=== PATIENT | male | born 1980 | race Caucasian/White ===

== ENCOUNTER 2017-08-26 14:25 | Emergency (ER) | payer OTHER ==
[2017-08-26] MEDS ORDERED: Sodium Chloride 0.9% 2.5 ML Syringe FLUSH PRN (14:27)
[2017-08-26] MEDS ORDERED: Sodium Chloride 0.9% 10 ML Syringe FLUSH PRN (14:27)
--- NOTE | 2017-08-26 14:47 | EDM.PDOC ---
ED HPI GENERAL MEDICAL PROBLEM - General Chief Complaint: Trauma Stated Complaint: AMB Time Seen by Provider: 08/26/17 14:26 Source of Information: Reports: Patient, EMS History Limitations: Reports: No Limitations - History of Present Illness INITIAL COMMENTS - FREE TEXT/NARRATIVE: History of present illness: []Patient was at work and was crushed between a fixed metal plate in a heavy hydraulic cylinder while standing up. He lost consciousness and the next thing he remembered was laying on the floor, jumping up and yelling at everyone to get away from him. Patient complained of right shoulder pain and right upper chest and back pain. Brought in by ambulance with stable vital signs denying any shortness of breath, abdominal pain or any other pain except noted above. Patient did experience urinary incontinence Review of systems: As per history of present illness and below otherwise all systems reviewed and negative. Past medical history: As per history of present illness and as reviewed below otherwise noncontributory. Surgical history: As per history of present illness and as reviewed below otherwise noncontributory. Social history: No reported history of drug or alcohol abuse. Family history: As per history of present illness and as reviewed below otherwise noncontributory. Physical exam: General: Well developed, well nourished in NAD HEENT: Atraumatic, normocephalic, pupils reactive, negative for conjunctival pallor or scleral icterus, mucous membranes moist, throat clear, neck supple, nontender, trachea midline. Lungs: Clear to auscultation, breath sounds equal bilaterally, chest nontender. Heart: S1S2, regular, negative for clicks, rubs, or JVD. Abdomen: Soft, nondistended, nontender. Negative for masses or hepatosplenomegaly. Negative for costovertebral tenderness. Pelvis: Stable nontender. Genitourinary: Deferred. Rectal: Deferred. Extremities: Atraumatic, negative for cords or calf pain. Neurovascular unremarkable. Neuro: Awake, alert, oriented. Cranial nerves II through XII unremarkable. Cerebellum unremarkable. Motor and sensory unremarkable throughout. Exam nonfocal. Diagnostics: []CT head neck and chest all negative, right shoulder x-rays negative for fracture or dislocation. Therapeutics: []patient declined any pain meds Impression: []Crush injury to chest, shoulder contusion Plan: []Tramadol Motrin for pain ice to areas of tenderness return if symptoms worsen or change. Definitive disposition and diagnosis as appropriate pending reevaluation and review of above. Right Shoulder Pain Score (Numeric/FACES): 3 - Related Data Allergies Allergy/AdvReac Type Severity Reaction Status Date / Time No Known Allergies Allergy Verified 08/26/17 16:00 Home Meds: Home Meds traMADol HCl [Tramadol HCl] 50 mg PO Q6H PRN #16 tablet 08/26/17 [Rx] Review of Systems - Review of Systems Review Of Systems: See Below (See history of present illness) ED EXAM, GENERAL - Physical Exam Exam: See Below (See history of present illness) Course - Vital Signs Last Recorded V/S: Last Vital Signs Temp 97.9 F 08/26/17 14:25 Pulse 104 H 08/26/17 14:25 Resp 18 08/26/17 14:25 BP 138/95 H 08/26/17 14:25 Pulse Ox 95 08/26/17 14:25 - Orders/Labs/Meds Orders: Active Orders 24 hr Category Date Time Status Admission Status [Patient Status] [ADT] Stat ADT 08/26/17 14:56 Active DRUG SCREEN, URINE [URCHEM] Stat Lab 08/26/17 14:28 Uncollected UA W/MICROSCOPIC [URIN] Stat Lab 08/26/17 14:27 Uncollected Sodium Chloride 0.9% [Saline Flush] Med 08/26/17 14:27 Active 10 ml FLUSH ASDIRECTED PRN Sodium Chloride 0.9% [Saline Flush] Med 08/26/17 14:27 Active 2.5 ml FLUSH ASDIRECTED PRN Saline Lock Insert [OM.PC] Stat Oth 08/26/17 14:27 Ordered Medication Orders Sodium Chloride (Saline Flush) 10 ml FLUSH ASDIRECTED PRN PRN Reason: Keep Vein Open Last Admin: 08/26/17 15:32 Dose: 10 ml Sodium Chloride (Saline Flush) 2.5 ml FLUSH ASDIRECTED PRN PRN Reason: Keep Vein Open Last Admin: 08/26/17 15:32 Dose: 2.5 ml Labs: Laboratory Tests 08/26/17 08/26/17 Range/Units 14:25 14:25 WBC 11.59 H (4.0-11.0) K/uL RBC 5.74 (4.50-5.90) M/uL Hgb 17.2 H (13.0-17.0) g/dL Hct 48.6 (38.0-50.0) % MCV 84.7 (80.0-98.0) fL MCH 30.0 (27.0-32.0) pg MCHC 35.4 (31.0-37.0) g/dL RDW Std Deviation 37.8 (28.0-62.0) fl RDW Coeff of Makayla 13 (11.0-15.0) % Plt Count 255 (150-400) K/uL MPV 9.80 (7.40-12.00) fL Add Manual Diff YES Neutrophils % (Manual) 61 (48.0-80.0) % Band Neutrophils % 1 % Lymphocytes % (Manual) 30 (16.0-40.0) % Monocytes % (Manual) 8 (0.0-15.0) % Absolute Seg Neuts 7.1 H (1.4-5.7) Band Neutrophils # 0.1 Lymphocytes # (Manual) 3.5 H (0.6-2.4) Monocytes # (Manual) 0.9 H (0.0-0.8) Sodium 140 (136-146) mmol/L Potassium 4.1 (3.5-5.1) mmol/L Chloride 105 (98-110) mmol/L Carbon Dioxide 24 (21-31) mmol/L BUN 7 (6.0-23.0) mg/dL Creatinine 0.8 (0.6-1.5) mg/dL Est Cr Clr Drug Dosing TNP Estimated GFR (MDRD) > 60.0 ml/min Glucose 96 (60-110) mg/dL Calcium 9.3 (8.8-10.8) mg/dL Total Bilirubin 0.5 (0.1-1.5) mg/dL AST 36 (5-40) IU/L ALT 46 (8-54) IU/L Alkaline Phosphatase 48 (40-150) Total Protein 7.5 (6.0-8.0) g/dL Albumin 4.5 (3.5-5.0) g/dL Globulin 3.0 (2.0-3.5) g/dL Albumin/Globulin Ratio 1.5 (1.3-2.8) Lipase 22 (7-80) U/L Ethyl Alcohol < 10.0 mg/dL Meds: Medications Generic Name Dose Route Start Last Admin Trade Name Freq PRN Reason Stop Dose Admin Sodium Chloride 10 ml 08/26/17 14:27 08/26/17 15:32 Saline Flush FLUSH 10 ml ASDIRECTED PRN Administration Keep Vein Open Sodium Chloride 2.5 ml 08/26/17 14:27 08/26/17 15:32 Saline Flush FLUSH 2.5 ml ASDIRECTED PRN Administration Keep Vein Open Discontinued Medications Generic Name Dose Route Start Last Admin Trade Name Freq PRN Reason Stop Dose Admin Iopamidol 75 ml 08/26/17 15:07 08/26/17 15:09 Isovue Multipack-370 (76%) IVPUSH 08/26/17 15:08 75 ml ONETIME STA Administration Departure - Departure Time of Disposition: 16:35 Disposition: Home, Self-Care 01 Condition: Good Clinical Impression: Chest wall contusion Qualifiers: Encounter type: initial encounter Laterality: right Qualified Code(s): S20.211A - Contusion of right front wall of thorax, initial encounter Shoulder contusion Qualifiers: Encounter type: initial encounter Laterality: right Qualified Code(s): S40.011A - Contusion of right shoulder, initial encounter - Discharge Information Prescriptions: traMADol HCl [Tramadol HCl] 50 mg PO Q6H PRN #16 tablet PRN Reason: Pain Referrals: Zenia Caldera MD [Physician] - (As needed) Forms: ED Department Discharge Additional Instructions: The following information is given to patients seen in the emergency department who are being discharged to home. This information is to outline your options for follow-up care. We provide all patients seen in our emergency department with a follow-up referral. The need for follow-up, as well as the timing and circumstances, are variable depending upon the specifics of your emergency department visit. If you don't have a primary care physician on staff, we will provide you with a referral. We always advise you to contact your personal physician following an emergency department visit to inform them of the circumstance of the visit and for follow-up with them and/or the need for any referrals to a consulting specialist. The emergency department will also refer you to a specialist when appropriate. This referral assures that you have the opportunity for follow-up care with a specialist. All of these measure are taken in an effort to provide you with optimal care, which includes your follow-up. Under all circumstances we always encourage you to contact your private physician who remains a resource for coordinating your care. When calling for follow-up care, please make the office aware that this follow-up is from your recent emergency room visit. If for any reason you are refused follow-up, please contact the [facility] Emergency Department at and asked to speak to the emergency department charge nurse. Tramadol Motrin for pain ice the area of tenderness, follow-up with her primary care physician. [facility] [address] [place] [address] - My Orders Last 24 Hours: My Active Orders 08/26/17 14:27 UA W/MICROSCOPIC [URIN] Stat Sodium Chloride 0.9% [Saline Flush] 10 ml FLUSH ASDIRECTED PRN Sodium Chloride 0.9% [Saline Flush] 2.5 ml FLUSH ASDIRECTED PRN Saline Lock Insert [OM.PC] Stat 08/26/17 14:28 DRUG SCREEN, URINE [URCHEM] Stat 08/26/17 14:56 Admission Status [Patient Status] [ADT] Stat - Assessment/Plan Last 24 Hours: My Active Orders 08/26/17 14:27 UA W/MICROSCOPIC [URIN] Stat Sodium Chloride 0.9% [Saline Flush] 10 ml FLUSH ASDIRECTED PRN Sodium Chloride 0.9% [Saline Flush] 2.5 ml FLUSH ASDIRECTED PRN Saline Lock Insert [OM.PC] Stat 08/26/17 14:28 DRUG SCREEN, URINE [URCHEM] Stat 08/26/17 14:56 Admission Status [Patient Status] [ADT] Stat
[2017-08-26 15:02] LABS: CHLORIDE,CL 105 mmol/L (98-110); SODIUM,NA 140 mmol/L (136-146)
[2017-08-26] MEDS ORDERED: Iopamidol 755 MG/ML 500 ML Multipack Bottle IVPUSH STA (15:07)
--- NOTE | 2017-08-26 15:31 | CT ---
EXAMINATION: Non contrast CT head. Coronal and sagittal reformats. HISTORY: Pain FINDINGS: No evidence of intra or extra axial hemorrhage, mass, midline shift, hydrocephalus or edema. No hyp oattenuation changes in the major vascular territories to suggest acute infarct. No abnormal intracranial calcifications are detected. No evidence of substantial vascular calcificat ions. Mucosal thickening noted within the maxillary sinuses. There is a small air-fluid level within the ri ght maxillary sinus. Pituitary fossa appears unremarkable. Orbits and globes are symmetric. The calvarium is intact. No e vidence of skull fracture. IMPRESSION: 1. No acute intracranial findings. 2. Mild paranasal sinus disease with fluid within the right maxillary sinus. Correlate clinically for injury versus sinusitis.
--- NOTE | 2017-08-26 15:33 | CT ---
EXAMINATION: CT cervical spine HISTORY: Pain COMPARISON: None TECHNIQUE: Axial CT images obtained through the cervical spine without contrast. Coronal and sagittal reconstructions obtained. FINDINGS: The cervical spinal alignment is normal. The vertebral body heights and disc spaces appear well-maintained. There is no fracture or acute osseous abnormality. Bone mineralization is normal. Pa ravertebral soft tissues appear normal. Partially visualized sinus disease again noted. Borderline le mansi 2 lymph nodes, likely reactive. Lung apices are clear. IMPRESSION: No acute osseous abnormality identified within the cervical spine.
--- NOTE | 2017-08-26 15:37 | CT ---
EXAMINATION: CT chest with contrast HISTORY: Shortness of breath COMPARISON: None TECHNIQUE: Axial CT images obtained through the chest without contrast. Coronal and sagittal reconstr uctions obtained. FINDINGS: The lungs are clear without focal consolidation. No pleural effusion or pneumothorax. The h eart is normal in size without a pericardial effusion. No mediastinal, hilar, or axillary lymphadenop athy. Thoracic aorta is normal in caliber. The main pulmonary arteries are patent. Residual thymic ti ssue is noted within the anterior mediastinum. Mild nodular thickening of the right adrenal gland. No suspicious osseous abnormalities identified. IMPRESSION: 1. No acute findings demonstrated within the chest.
--- NOTE | 2017-08-26 16:17 | CR ---
EXAMINATION: Right shoulder HISTORY: Injury COMPARISON: None TECHNIQUE: 3 views FINDINGS/IMPRESSION: There is no acute osseous abnormality, dislocation, or fracture. Joint spaces an d bone mineralization appear preserved.
== END 2017-08-26 17:02 | disposition home or self-care (01) ==
LOC: MW.ED 14:25
DX: S28.0XXA Crushed chest, initial encounter (principal); S40.011A Contusion of right shoulder, initial encounter; S20.211A Contusion of right front wall of thorax, initial encounter; W23.1XXA Caught, crushed, jammed, or pinched between stationary objects, initial encounter
CPT/HCPCS: 36415; 70450; 71260; 72125; 73030; 80053; 83690; 85025; 99285; G0390; G0480; Q9967; 99284